=== PATIENT | male | born 1965 | race Caucasian/White ===

== ENCOUNTER 2020-06-22 08:30 | Emergency (ER) | payer SELFPAY ==
[~2020-06-22] VITALS: Ht 165.1 cm; Wt 64.4 kg
[2020-06-22 08:42] VITALS: BP 133/71; Ht 165.1 cm; Wt 64.4 kg
[2020-06-22] MEDS ORDERED: MIRALAX17 GM PO (10:31)
[2020-06-22] MEDS ORDERED: ULTRAM50 MG PO (10:31)
== END 2020-06-22 10:37 | disposition home or self-care (01) ==
LOC: ED 08:30
DX: K59.00 Constipation, unspecified (principal); Z90.89 Acquired absence of other organs